=== PATIENT | female | born 1955 | race Two or more races ===

== ENCOUNTER 2019-08-25 21:04 | Emergency (ER) | payer MEDICARE, OTHER ==
--- NOTE | 2019-08-25 21:19 | ER Document Report ---
ED Medical Screen (RME) - General Chief Complaint: Facial Droop Stated Complaint: LEFT SIDE DROOPY FACE Time Seen by Provider: 08/25/19 21:13 Primary Care Provider: JAVI ZHONG MD [Primary Care Provider] - Follow up as needed Mode of Arrival: Wheelchair Information source: Patient Notes: HPI; 63-year-old female past medical history significant for hypertension presents with sudden onset of left facial numbness, droop, and drooling at the left side of her mouth that started approximately around 5 PM tonight while she was brushing her teeth. States she feels like left side of her face is sleep. She denies any slurred speech. She denies any generalized weakness. PE: Alert and oriented x3. Left-sided facial droop which is noted. Unable to lift left eyebrow. Decreased sensation to touch to the left side of the face. Law Secretary strength is equal and adequate bilaterally. I have greeted and performed a rapid initial assessment of this patient. A comp rehensive ED assessment and evaluation of the patient, analysis of test results and completion of the medical decision making process will be conducted by additional ED providers. I have specifically instructed the patient or family members with the patient to immediately return to any nursing staff should anything change in the patient's condition or with their chief complaint. TRAVEL OUTSIDE OF THE [place] IN LAST 30 DAYS: No Physical Exam - Vital signs Vitals: Temp Pulse Resp BP Pulse Ox 99.3 F 65 21 H 140/79 H 97 08/25/19 21:11 08/25/19 21:11 08/25/19 21:11 08/25/19 21:11 08/25/19 21:11 Course - Vital Signs Vital signs: Temp Pulse Resp BP Pulse Ox 99.3 F 65 21 H 140/79 H 97 08/25/19 21:11 08/25/19 21:11 08/25/19 21:11 08/25/19 21:11 08/25/19 21:11 Doctor's Discharge - Discharge Referrals: JAVI ZHONG MD [Primary Care Provider] - Follow up as needed
--- NOTE | 2019-08-25 21:55 | ER Document Report ---
ED General - General Chief Complaint: Facial Droop Stated Complaint: LEFT SIDE DROOPY FACE Time Seen by Provider: 08/25/19 21:13 Primary Care Provider: JAVI ZHONG MD [Primary Care Provider] - Follow up as needed Mode of Arrival: Wheelchair Notes: Marie notes HPI; 63-year-old female past medical history significant for hypertension presents with sudden onset of left facial numbness, droop, and drooling at the left side of her mouth that started approximately around 5 PM tonight while she was brushing her teeth. States she feels like left side of her face is sleep. She denies any slurred speech. She denies any generalized weakness. PE: Alert and oriented x3. Left-sided facial droop which is noted. Unable to lift left eyebrow. Decreased sensation to touch to the left side of the face. 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 TRAVEL OUTSIDE OF THE [place] IN LAST 30 DAYS: No - HPI Onset: This evening - 1700 while brushing teeth..pt noticed droop in mirror Onset/Duration: Sudden, Persistent Quality of pain: No pain Severity: None Pain Level: Denies Associated symptoms: None Exacerbated by: Denies Relieved by: Denies Similar symptoms previously: No Recently seen / treated by doctor: No - Related Data Allergies/Adverse Reactions: Penicillins Allergy (Verified 08/25/19 21:20) Home Medications: Metformin, Metroprolol, Atorvastatin, Paroxetine, Hydrochlorathiazide, Sarah, ASA, Sleep Aid, eye itch relief drops Past Medical History - General Information source: Patient, Parent - - Social History Smoking Status: Never Smoker Cigarette use (# per day): No Chew tobacco use (# tins/day): No Smoking Education Provided: No Frequency of alcohol use: None Drug Abuse: None Lives with: Family Family History: Reviewed & Not Pertinent Patient has suicidal ideation: No Patient has homicidal ideation: No Review of Systems - Review of Systems Constitutional: No symptoms reported EENT: See HPI Cardiovascular: No symptoms reported Respiratory: No symptoms reported Gastrointestinal: No symptoms reported Genitourinary: No symptoms reported Female Genitourinary: No symptoms reported Musculoskeletal: No symptoms reported Skin: No symptoms reported Hematologic/Lymphatic: No symptoms reported Neurological/Psychological: No symptoms reported Physical Exam - Vital signs Vitals: Temp Pulse Resp BP Pulse Ox 99.3 F 65 21 H 140/79 H 97 08/25/19 21:11 08/25/19 21:11 08/25/19 21:11 08/25/19 21:11 08/25/19 21:11 Interpretation: Normal - General General appearance: Alert - HEENT Head: Normocephalic, Atraumatic, Other - pos facial droop L side Eyes: Normal Pupils: PERRL Mouth/Lips: Normal Mucous membranes: Normal Pharynx: Normal Neck: Normal - Respiratory Respiratory status: No respiratory distress Chest status: Nontender Breath sounds: Normal Chest palpation: Normal - Cardiovascular Rhythm: Regular Heart sounds: Normal auscultation Murmur: No - Abdominal Inspection: Normal Distension: No distension Bowel sounds: Normal Tenderness: Nontender Organomegaly: No organomegaly - Rectal Hemorrhoids: Other - deferred - Genitourinary Speculum exam: Other - deferred - Back Back: Normal - Extremities General upper extremity: Normal inspection, Nontender, Normal color, Normal ROM, Normal temperature General lower extremity: Normal inspection, Nontender, Normal color, Normal ROM, Normal temperature, Normal weight bearing. No: Joao's sign - Neurological Neuro grossly intact: Yes Cognition: Normal Orientation: AAOx4 [place] Coma Scale Eye Opening: Spontaneous [place] Coma Scale Verbal: Oriented [place] Coma Scale Motor: Obeys Commands [place] Coma Scale Total: 15 Speech: Normal Motor strength normal: LUE, RUE, LLE, RLE Sensory: Normal - Psychological Associated symptoms: Normal affect - Skin Skin Temperature: Warm Skin Moisture: Dry Course - Vital Signs Vital signs: Temp Pulse Resp BP Pulse Ox 99.3 F 76 27 H 153/87 H 98 08/25/19 21:11 08/25/19 22:05 08/25/19 22:13 08/25/19 22:13 08/25/19 22:13 - Laboratory Result Diagrams: 08/25/19 22:13 08/25/19 22:13 Laboratory results interpreted by me: 08/25/19 08/25/19 08/25/19 22:04 22:13 22:13 RDW 14.2 H Sodium 134.5 L Glucose 111 H POC Glucose 121 H - Diagnostic Test Radiology reviewed: Reports reviewed Critical Care Note - Critical Care Note Total time excluding time spent on procedures (mins): 60 Comments: Patient was given IV Decadron and oral acyclovir and Keflex p.o.; I discussed negative CT and laboratory findings with patient and Discharge - Discharge Clinical Impression: Keller palsy Condition: Good Disposition: HOME, SELF-CARE Additional Instructions: Follow-up with personal doctor this week return to ER as needed and take medicines as directed and be aware that potentially some shingles rash may occur along the left gnosticist and left face so be aware for any lesions within 1 week. Otherwise your symptoms may continue for several weeks. You may need to see a n eurologist as well as your personal doctor. Prescriptions: Dexamethasone [Decadron 4 Mg Tablet] 4 mg PO DAILY #5 tablet Levofloxacin [Levaquin 500 mg Tablet] 500 mg PO DAILY #10 tablet Acyclovir [Zovirax 200 mg Capsule] 200 mg PO TID #21 capsule Referrals: JAVI ZHONG MD [Primary Care Provider] - Follow up as needed
--- NOTE | 2019-08-25 21:56 | RADIOLOGY REPORT (SQ) ---
EXAM DESCRIPTION: X-ray, single view of the chest CLINICAL HISTORY: 63 years Female, left sided facial droop COMPARISON: None. FINDINGS: Lungs: Lungs are clear. No pneumonia or edema. No pneumothorax or pleural effusion. Mediastinum: Cardiac and mediastinal silhouette are normal. Bones: Osseous structures are normal. IMPRESSION: Unremarkable single view of the chest.
--- NOTE | 2019-08-25 22:10 | RADIOLOGY REPORT (SQ) ---
EXAM DESCRIPTION: CT HEAD WITHOUT IV CONTRAST COMPLETED DATE/TME: 08/25/2019 21:17 CLINICAL HISTORY: 63 years, Female, left sided facial droop COMPARISON: None. TECHNIQUE: 194 Images stored on PACS. All CT scanners at this facility use dose modulation, iterative reconstruction, and/or weight based dosing when appropriate to reduce radiation dose to as low as reasonably achievable (ALARA). [facility]: Dose Right [facility]: CareDose [facility]: Dose Right [facility]: Teradose 4D [facility]: [employer] LIMITATIONS: None. FINDINGS: The globes are intact. The paranasal sinuses and mastoid air cells are well aerated. No displaced or depressed skull fracture. No intra or extra-axial hemorrhage. CT is limited for evaluation of acute infarct. No CT evidence for large or territorial acute infarct. No mass. No midline shift. Mild age-appropriate atrophy with minor small vessel ischemic change IMPRESSION: Mild atrophy and minor small vessel ischemic change TECHNICAL DOCUMENTATION: Quality ID # [id number]: Final reports with documentation of one or more dose reduction techniques (e.g., Automated exposure control, adjustment of the mA and/or kV according to patient size, use of iterative reconstruction technique) copyright 2011 [employer]- All Rights Reserved
[2019-08-25] MEDS ORDERED: DEXAMETHASONE SOD PHOS INJ 10 MG/1 ML VIAL IV ONE (22:24)
[2019-08-25] MEDS ORDERED: LEVOFLOXACIN 750 MG/D5W RTU 750 MG/150 ML RTUPB IV ONE (22:24)
[2019-08-25] MEDS ORDERED: ACYCLOVIR 200 MG CAPSULE PO ONE (22:26)
[2019-08-25 22:33] LABS: ABSOLUTE BASOPHILS # (AUTO) 0.1 10^3/uL (0.0-0.2); ABSOLUTE LYMPHOCYTES (AUTO) 2.2 10^3/uL (0.5-4.7); ABSOLUTE MONOCYTES (AUTO) 0.9 10^3/uL (0.1-1.4); ABSOLUTE NEUT (AUTO) 4.9 10^3/uL (1.7-8.2); BASOPHILS % (AUTO) 0.7 % (0-2); EOSINOPHILS % (AUTO) 0.5 % (0-6); HEMATOCRIT 39.9 % (36.0-47.0); HEMOGLOBIN 13.6 g/dL (12.0-15.5); LYMPHOCYTES % (AUTO) 26.8 % (13-45); MEAN CORPUSCULAR VOLUME 94 fl (80-97); MONOCYTES % (AUTO) 11.6 % (3-13); PLATELET COUNT 274 10^3/uL (150-450); RED BLOOD COUNT 4.24 10^6/uL (3.72-5.28); RED CELL DISTRIBUTION WIDTH 14.2 % (11.5-14.0); SEGMENTED NEUTROPHILS % (AUTO) 60.4 % (42-78); TOTAL CELLS COUNTED % (AUTO) 100 %; WHITE BLOOD COUNT 8.1 10^3/uL (4.0-10.5)
[2019-08-25 22:37] LABS: PARTIAL THROMBOPLASTIN TIME 24.9 SEC (23.5-35.8)
[2019-08-25 22:42] LABS: ALBUMIN 4.3 g/dL (3.5-5.0); ALKALINE PHOSPHATASE 63 U/L (38-126); ANION GAP 6 (5-19); ASPARTATE AMINO TRANSFERASE 22 U/L (14-36); BILIRUBIN,TOTAL 0.4 mg/dL (0.2-1.3); BLOOD UREA NITROGEN 18 mg/dL (7-20); CALCIUM 9.8 mg/dL (8.4-10.2); CARBON DIOXIDE 30 mmol/L (22-30); CHLORIDE 99 mmol/L (98-107); CREATINE KINASE 58 U/L (30-135); GLUCOSE 111 mg/dL (75-110); POTASSIUM 3.8 mmol/L (3.6-5.0); TOTAL PROTEIN 7.5 g/dL (6.3-8.2)
[2019-08-25 22:45] LABS: INTERNATIONAL RATION (INR) 0.98
[2019-08-25 22:54] LABS: CREATINE KINASE MB 0.53 ng/mL (<4.55)
[2019-08-25 23:00] LABS: TROPONIN I < 0.012 ng/mL
[2019-08-26 00:47] VITALS: BP 131/91
--- NOTE | 2019-08-26 07:38 | EKG REPORT ---
SEVERITY:- ABNORMAL ECG - SINUS RHYTHM NONSPECIFIC T ABNORMALITIES, INFERIOR LEADS : Confirmed by: Jacinto Samayoa MD 26-Aug-2019 07:37:56
== END 2019-08-26 00:56 | disposition home or self-care (01) ==
LOC: ER 21:04
DX: G51.0 Bell's palsy (principal); I10 Essential (primary) hypertension; Z79.84 Long term (current) use of oral hypoglycemic drugs; Z79.899 Other long term (current) drug therapy; Z79.82 Long term (current) use of aspirin; Z88.0 Allergy status to penicillin
CPT/HCPCS: 93005; 99291; 96361; 96374; 36415; 87040; 82553; 82962; 82550; 85025; 85610; 85730; 80053; 84484; 71045; 70450; 93010; A9270; J1100; J1956